=== PATIENT | female | born 1960 | race Caucasian/White ===

== ENCOUNTER 2020-08-21 16:46 | Emergency (ER) | payer MEDICARE, SELFPAY ==
--- NOTE | 2020-08-21 17:09 | ED.FEMALEGU ---
HPI - Female Genitourinary General Chief complaint: Urogenital-Female Stated complaint: Poss uti Time Seen by Provider: 08/21/20 17:09 Source: patient Mode of arrival: ambulatory Limitations: no limitations History of Present Illness HPI Narrative: Kellen Rodriguez is a 60-year-old female with PMH of ,ibs, [facility] with complaints of pressure and dysuria, retention, nausea. His fever 100.4; denies vaginal discharge Denies being on blood pressure medication AFinn redd with history of stroke Also has lost 30 pounds in the last year unbeknownst to her(estimated weight at 150 actually weighs 117) Related Data Allergies Allergy/AdvReac Type Severity Reaction Status Date / Time bee venom protein (honey bee) Allergy Unknown Verified 08/21/20 17:11 [bees] Review of Systems Review of Systems: Narrative: CONSTITUTIONAL: Denies fever, chills, sweats. EYES: Denies visual changes, redness, discharge. ENT: Denies rhinorrhea, congestion, sore throat, otalgia. CARDIOVASCULAR: Denies chest pain, palpitations, edema. RESPIRATORY: Denies dyspnea, wheezing, cough GASTROINTESTINAL: Denies abdominal pain, nausea, vomiting, diarrhea. GENITOURINARY: Has dysuria, hematuria, abnormal discharge SKIN: Denies rash or itching. NEUROLOGIC: Denies numbness, or focal weakness. PSYCHIATRIC: Denies anxiety or depression. [facility] Past Medical History Medical History IBS (irritable bowel syndrome) Stroke Social History Social History (Updated 08/21/20 @ 17:13 by Leonor Joyce CNP) Smoking packs per day: 1.0 Smoking cigarettes per day: 20.0 Smoking status: Current every day smoker Alcohol intake: current Gender identity (if verbalized by the patient): Female Comments At time of signature, I agree with nursing past medical, surgical, social and family history. There is no relevant family history pertinent to the presenting complaint. Exam Narrative: Exam Narrative: GENERAL: This is a well-nourished, well-developed patient, in mild distress. Low-grade fever HEAD: normocephalic, atraumatic. EYES: Sclera clear/white. Vision is grossly intact. EARS: External ears normal, Hearing grossly intact. NOSE: External nose normal without nasal discharge, nares without redness, no rhinorrhea. THROAT: Mucous membranes moist, NECK: Neck supple, non-tender CARDIOVASCULAR: Regular rate and rhythm without murmurs, gallops, or rubs. RESPIRATORY: Clear to auscultation. Breath sounds equal bilaterally. No wheezes, rales, or rhonchi. GASTROINTESTINAL: Abdomen soft, mild tender, SKIN: warm, intact with no suspicious lesions or rash, good texture and turgor. NEURO: awake, alert, and oriented to person, place and time. There were no obvious focal neurologic abnormalities. Steady gait EXTREMITIES: Normal range of motion. BACK: Nontender without deformity Course Course Emergency Course: Patient here with complaints of of dysuria and painful urination and she was nauseated and vomited last night she now has a low-grade fever UA shows 2+ blood and 2+ leukocyte Started on Keflex and Pyridium given 1 g of ceftriaxone here Given directions to rest hydrate and if not improving by tomorrow should go to the emergency room for hydration IV antibiotics Vital Signs Vital signs: Vital Signs Temperature 100.4 F H 08/21/20 17:12 Pulse Rate 94 08/21/20 17:12 Respiratory Rate 16 08/21/20 17:12 Blood Pressure 136/88 08/21/20 17:12 Pulse Oximetry 100 08/21/20 17:12 Temperature 100.4 F H 08/21/20 17:12 Pulse Rate 94 08/21/20 17:12 Respiratory Rate 16 08/21/20 17:12 Blood Pressure 136/88 08/21/20 17:12 Pulse Oximetry 100 08/21/20 17:12 MDM - Female Genitourinary Differential Diagnosis Differential diagnosis: Likely urinary tract infection, cystitis and other (Pyelonephritis) Lab Data Labs: Urine Glucose Negative
[2020-08-21 17:12] VITALS: BP 136/88; PULSE 94; RESP 16; TEMP 38; O2SAT 100
[2020-08-21] MEDS: cefTRIAXone 1 GM VIAL IM (17:38)
[2020-08-21] MEDS: LIDOCAINE HCL 1% LOCAL INJ 20 ML VIAL 2.1 ML IM (17:39)
== END 2020-08-21 18:01 | disposition home or self-care (01) ==
PROVIDERS: Emergency Provider Nurse Practitioner
DX: N12 Tubulo-interstitial nephritis, not specified as acute or chronic (principal); F17.210 Nicotine dependence, cigarettes, uncomplicated; Z86.73 Personal history of transient ischemic attack (TIA), and cerebral infarction without residual deficits
CPT/HCPCS: 81003; 87086; 87088; 96372; 99203; G0463; J0696

== ENCOUNTER 2020-12-30 12:54 | Emergency (ER) | payer MEDICARE, SELFPAY ==
--- NOTE | 2020-12-30 13:01 | ED.URI ---
HPI - URI/Sore Throat General Chief Complaint: Upper Respiratory Infection Stated Complaint: chest congestion/wheezing Time Seen by Provider: 12/30/20 13:12 Source: patient and RN notes reviewed Mode of arrival: ambulatory Limitations: no limitations History of Present Illness HPI Narrative: 60-year-old female presents with concern for 1 week history of cough, wheezing, chest congestion. Reports she has been taking DayQuil with little relief. She reports she is a smoker. She denies body aches, chills, sweats, fever. She denies any known sick contacts. MD elicited complaint: cough Related Data Allergies Allergy/AdvReac Type Severity Reaction Status Date / Time bee venom protein (honey bee) Allergy Unknown Verified 08/21/20 17:11 [bees] Review of Systems Review of Systems: CONSTITUTIONAL: Denies malaise, chills, sweats, or fever. EYES: Denies visual changes, redness, or discharge. ENT: Reports rhinorrhea, congestion. Denies sinus pain, otalgia and sore throat. CARDIOVASCULAR: Denies chest pain, palpitations, or edema. RESPIRATORY: Reports cough, wheezing, chest congestion. Denies dyspnea. GASTROINTESTINAL: Denies abdominal pain, nausea, vomiting, diarrhea SKIN: Denies rash or itching. MUSCULOSKELETAL: Denies myalgia. NEUROLOGIC: Denies headache. All systems reviewed & are unremarkable except as noted in HPI and below PMFSH Past Medical History Medical History IBS (irritable bowel syndrome) Stroke Social History Social History (Updated 08/21/20 @ 17:13 by Leonor Joyce CNP) Smoking packs per day: 1.0 Smoking cigarettes per day: 20.0 Smoking status: Current every day smoker Alcohol intake: current Gender identity (if verbalized by the patient): Female Comments At time of signature, agree with nursing past medical, surgical, social and family history. There is no relevant family history pertinent to the presenting complaint Exam Narrative: GENERAL: Well-appearing, well-nourished, and in no acute distress. HEAD: Normocephalic EYES: PERRLA, conjunctivae clear ENT: Nares clear. Mucous membranes moist. TM pearly iglesias with sharp light reflex bilaterally; no tragal tenderness. Oropharynx not erythematous without lesions. Tonsils not enlarged and without exudate, no drooling, no hoarseness, no trismus, uvula midline. NECK: Supple. No lymphadenopathy CHEST: Clear to auscultation, breath sounds equal. No wheezing, rhonchi, rales, or stridor. No respiratory distress, speaks in full sentences. Cough noted HEART: Regular rate and rhythm. No murmur heard. SKIN: Warm, dry, no rash. NEURO: Alert and oriented x3. PSYCH: Normal mood and affect Course Course Emergency Course: Patient is aware of diagnosis, understands and agrees to treatment plan. Anticipatory guidance given. Patient agrees to follow-up as directed and is aware of reasons to seek care at the emergency department. Portions of this record may have been created with voice recognition software Vital Signs Vital signs: Reviewed. MDM - URI/Sore Throat MDM Narrative Medical decision making narrative: Differential diagnosis considered: Winn virus, strep pharyngitis, allergic rhinitis, upper respiratory tract infection, sinusitis, rhinosinusitis, nasopharyngitis. viral pharyngitis, otitis media, otitis externa, pneumonia, bronchitis, viral cough syndrome, viral syndrome, and influenza. Exam findings show no acute concerns or changes; patient is non-toxic appearing and is in no distress. Patient is appropriate for outpatient treatment and follow-up. Critical Care Time Critical Care Time Critical Care Time: No Discharge Plan Discharge Clinical Impression: Upper respiratory infection with cough and congestion, Cigarette smoker Patient Disposition: Home, Self-Care Condition: Stable Instructions: Antibiotic Form, How to Stop Smoking (ED), Acute Cough (ED) Additional Instructions: Take
[2020-12-30 13:02] VITALS: BP 152/75; PULSE 94; RESP 16; TEMP 37.4; O2SAT 100
== END 2020-12-30 13:37 | disposition home or self-care (01) ==
PROVIDERS: Emergency Provider Nurse Practitioner
DX: J06.9 Acute upper respiratory infection, unspecified (principal); R05.9 Cough, unspecified; F17.210 Nicotine dependence, cigarettes, uncomplicated; Z86.73 Personal history of transient ischemic attack (TIA), and cerebral infarction without residual deficits
CPT/HCPCS: 99213; G0463

== ENCOUNTER 2021-07-01 19:43 | Emergency (ER) | payer OTHER, SELFPAY ==
[2021-07-01 19:52] VITALS: BP 144/75; PULSE 91; RESP 16; TEMP 37.1; O2SAT 99
--- NOTE | 2021-07-01 19:53 | ED.LOWEXIN ---
HPI - Extremity Injury (Lower) General Stated Complaint: Swollen Feet Time Seen by Provider: 07/01/21 19:53 Source: patient Mode of arrival: ambulatory Limitations: no limitations History of Present Illness HPI Narrative: Ms. Rodriguez is a 60-year-old female patient presenting to the clinic today with complaints of bilateral feet swelling x1 day. She reports that the swelling in her feet has improved since she had left her legs elevated all night last night. She came into the clinic today because she was worried because her boss stated that she may have a bacterial infection causing her swelling. She denies fever or swelling at this time Related Data Allergies Allergy/AdvReac Type Severity Reaction Status Date / Time bee venom protein (honey bee) Allergy Unknown Verified 08/21/20 17:11 [bees] Review of Systems Review of Systems: Pertinent positives per HPI. Patient denies any fever, chills, rash, headache, visual changes, dizziness, cough, runny nose, sore throat, shortness of breath, chest pain, palpitations, nausea, vomiting, diarrhea, constipation, abdominal pain, or any urinary issues. PMFSH Past Medical History Medical History IBS (irritable bowel syndrome) Stroke Social History Social History Smoking packs per day: 1.0 Smoking cigarettes per day: 20.0 Smoking status: Current every day smoker Alcohol intake: current Gender identity (if verbalized by the patient): Female Comments At the time of my signature, I reviewed and agree with the nursing past medical, surgical, social, and family history. There is no relevant family history pertinent to the patient complaint. Exam Narrative: General: Well-developed, well nourished, in no apparent distress Head: Normocephalic, atraumatic. Cardio: Regular rate and rhythm, s1 and s2 normal, no murmur appreciated. Resp: Clear to auscultation bilaterally, no rhonchi, rales, wheezing or rubs. Musculoskeletal: No deformity, non-tender to palpation, grossly normal range of motion, muscle strength strong and equal, peripheral pulse strong, no edema, no cyanosis, normal gait and station Course Course Emergency Course: Portions of this record may have been created with voice recognition software. Level of Care: Express Care Visit Vital Signs Vital signs: Vital Signs Temperature 37.1 C 07/01/21 19:52 Pulse Rate 91 07/01/21 19:52 Respiratory Rate 16 07/01/21 19:52 Blood Pressure 144/75 H 07/01/21 19:52 Pulse Oximetry 99 07/01/21 19:52 Temperature 37.1 C 07/01/21 19:52 Pulse Rate 91 07/01/21 19:52 Respiratory Rate 16 07/01/21 19:52 Blood Pressure 144/75 H 07/01/21 19:52 Pulse Oximetry 99 07/01/21 19:52 Vital signs reviewed MDM - Extremity Injury (Lower) MDM Narrative Medical decision making narrative: At the time of visit patient is resting comfortably on the exam table. She has no trace of edema in the lower extremities. Supportive measures were discussed and patient is to follow-up with her PCP for any ongoing concerns. Discharge Plan Discharge Clinical Impression: Bilateral swelling of feet Patient Disposition: Home, Self-Care Condition: Stable Instructions: Edema (ED) Additional Instructions: Keep legs elevated as much as possible Eat a diet low in salt. Wear compression stockings if you are on your feet for long periods of time. No swelling seen in the clinic today If symptoms persist recommend follow-up with your PCP to have further evaluation Prescriptions: No Action promethazine-DM 6.25-15 mg/5 mL syrup 5 ml PO Q4-6H PRN (Reason: cough) Qty: 120 RF: 0 methylprednisolone [Medrol (Home)] 4 mg tablets,dose pack See Rx Instructions .ROUTE .COMPLEX Qty: 21 RF: 0 azithromycin [Zithromax Z-Home] 250 mg tablet See Rx Instructions .ROUTE .COMPLEX Qty: 6
== END 2021-07-01 20:00 | disposition home or self-care (01) ==
PROVIDERS: Emergency Provider Nurse Practitioner Family
DX: R22.43 Localized swelling, mass and lump, lower limb, bilateral (principal); F17.210 Nicotine dependence, cigarettes, uncomplicated; Z86.72 Personal history of thrombophlebitis
CPT/HCPCS: 99211; G0463